=== PATIENT | female | born 1965 | race Caucasian/White ===

== ENCOUNTER 2017-04-24 09:22 | Emergency (ER) | payer BC ==
--- NOTE | 2017-04-24 09:27 | EDPHY ---
H & P Time Seen by Provider: 04/24/17 09:24 HPI/ROS: Chief Complaint: Right knee injury HPI: The patient presents to the ED with complaints of right knee pain following a slip and fall on ice yesterday. She reportedly twisted her leg. Since that time she has had difficulty with ambulation. She complains of pain along the lateral aspect of her knee. She denies associated numbness or weakness. The patient denies additional traumatic injury. She rates her symptoms as moderate in nature. REVIEW OF SYSTEMS: Neuro: no headache, numbness, weakness Musculoskeletal: as above Skin: no abrasion or lacerations Source: Patient Exam Limitations: No limitations - Medical/Surgical History PMH: Past medical history: Noncontributory - Family History Significant Family History: No pertinent family hx - Social History Smoking Status: Current some day smoker - Physical Exam Exam: General Appearance: Alert, no distress Head: Atraumatic Neck: Nontender, trachea midline Respiratory: No chest wall tender Skin: No lacerations, No abrasion Back: No midline T/L/S pain Extremities: Tenderness to palpation along the lateral aspect of right knee, no significant joint effusion noted, no ecchymosis or abrasion Neurological: A&Ox3, normal motor function, normal sensory exam Constitutional: Initial Vital Signs Temperature (C) 36.5 C 04/24/17 09:25 Heart Rate 65 04/24/17 09:25 Respiratory Rate 18 04/24/17 09:25 Blood Pressure 122/92 H 04/24/17 09:25 O2 Sat (%) 95 04/24/17 09:25 O2 Delivery Mode Room Air Allergies/Adverse Reactions: No Known Allergies Allergy (Unverified 04/24/17 09:25) Home Medications: Medication Instructions Recorded Lexapro 04/24/17 Medical Decision Making - Diagnostics Imaging Results: Imaging Impressions Knee X-Ray 04/24/17 09:33 Impression: Nothing acute identified. ED Course/Re-evaluation: The patient presents to the ED with a right knee strain. There is no evidence of an obvious fracture seen on her x-ray today. The patient will be given an Jose wrap and crutches. She is discharged home with customary ankle sprain aftercare instructions. She is advised to follow up with our on-call orthopedic surgeon for any unimproved symptoms as this may be the sign of an injury not seen on the x-ray today. Differential Diagnosis: Differential diagnosis considered includes fracture, sprain, dislocation Departure - Departure Disposition: Home, Routine, Self-Care Clinical Impression: Strain of right knee Condition: Good Instructions: Musculoskeletal Pain (ED) Additional Instructions: 1. Take Ibuprofen or Motrin 600 mg by mouth three times a day. 2. Jose wrap and crutches as needed. 3. Please follow up with the orthopedic surgeon you have been referred to for any symptoms which are unimproved past 5-7 days as this may be the sign of an injury not seen on the x-ray today. Referrals: Hector Will MD [Medical Doctor] - As per Instructions
[2017-04-24 09:30] VITALS: RESP 18; TEMP 97.7
[2017-04-24 10:35] VITALS: BP 130/70; PULSE 61; O2SAT 94
[2017-04-24] MEDS ORDERED: IBUPROFEN 600 MG TAB PO ONE (11:02)
== END 2017-04-24 12:03 | disposition home or self-care (01) ==
DX: S86.911A Strain of unspecified muscle(s) and tendon(s) at lower leg level, right leg, initial encounter (principal); F17.200 Nicotine dependence, unspecified, uncomplicated; W01.0XXA Fall on same level from slipping, tripping and stumbling without subsequent striking against object, initial encounter